=== PATIENT | female | born 1945 | race Caucasian/White ===

== ENCOUNTER 2018-10-30 11:53 | Emergency (ER) | payer MEDICARE ==
--- NOTE | 2018-10-30 12:12 | EDM.PDOC ---
ED HPI GENERAL MEDICAL PROBLEM - General Chief Complaint: Neuro Symptoms/Deficits Stated Complaint: PROBLEM WITH BALANCE,MIGHT'VE HAD A STROKE Time Seen by Provider: 10/30/18 12:01 Source of Information: Reports: Patient, Family History Limitations: Reports: No Limitations - History of Present Illness INITIAL COMMENTS - FREE TEXT/NARRATIVE: 73-year-old female presents to the ED in a complement of her son. He reports that about 48 hours ago he noted that she wasn't walking normally and that her speech was somewhat dysarthric. Took a while for him to build to talk her into coming to the hospital suspecting she male well suffered a stroke. She was still in denial that she had suffered a stroke even upon reaching the ED. Her speech is mildly dysarthric. She denies headache nausea vomiting. She denies any visual acuity changes. She states she still able to walk to the bathroom. She does not use Gait aid at home. Denies any palpitations or irregular heartbeats. States she does have chronic high blood pressure. She's been away on a cruise for 3 weeks and just got back home and is currently here visiting from [place] with her children. She states she hasn't been checking her blood pressure for the last month. Onset: Sudden Onset Date: 10/28/18 (Seem to have symptoms upon awakening 2 days ago.) Duration: Day(s):, Constant Location: Reports: Face (With dysarthric speech), Upper Extremity, Left ( Apparently was noted to be dropping things with her left upper extremity 24 hours ago.), Lower Extremity, Left, Other (Troubles walking. Dysarthric speech) Quality: Reports: Other (Dysarthria and trouble walking noted by son and daughter.) Severity: Mild Improves with: Reports: None Worsens with: Reports: None Context: Reports: Other (Seemed to awake with symptoms of dysarthria and weakness on the left arm and leg making it difficult for her to walk normally 2 days ago.). Denies: Activity, Exercise, Lifting, Sick Contact, Trauma Associated Symptoms: Reports: Malaise (has been little more tired as of late but blames this on her trip up here from [place].). Denies: Confusion, Chest Pain, Cough, cough w sputum, Diaphoresis, Fever/Chills, Headaches, Loss of Appetite, Nausea/Vomiting, Rash, Seizure, Shortness of Breath, Syncope Treatments TRANSPORTATION AID: Reports: Other (see below) (No recent changes to any of her medications.) - Related Data Allergies Allergy/AdvReac Type Severity Reaction Status Date / Time No Known Allergies Allergy Verified 10/30/18 12:08 Home Meds: Home Meds Aspirin [Halfprin] 162 mg PO DAILY #90 tab.ec 10/30/18 [Rx] Clopidogrel Bisulfate [Plavix] 75 mg PO DAILY #20 tablet 10/30/18 [Rx] Past Medical History HEENT History: Reports: Other (See Below) (Wears eyeglasses.) Cardiovascular History: Reports: High Cholesterol, Hypertension Musculoskeletal History: Reports: Osteoarthritis, Osteoporosis Social & Family History - Tobacco Use Smoking Status *Q: Never Smoker Second Hand Smoke Exposure: No - Caffeine Use Caffeine Use: Reports: Coffee, Tea - Recreational Drug Use Recreational Drug Use: No - Living Situation & Occupation Living situation: Reports: Occupation: Retired (Just came home from a three-week cruise. She currently resides in [place] and is currently up here in [place] visiting her son and daughter.) ED ROS GENERAL - Review of Systems Review Of Systems: See Below Constitutional: Reports: Malaise, Fatigue. Denies: Fever, Chills, Decreased Appetite, Weight Loss HEENT: Reports: Glasses. Denies: Vision Change Respiratory: Reports: No Symptoms Cardiovascular: Reports: No Symptoms, Blood Pressure Problem (Chronic hypertension problem and she has been checking her blood pressures for the last month.). Denies: Palpitations Endocrine: Reports: Fatigue GI/Abdominal: Reports: Constipation : Reports: Frequency (Occasional positive constipation), Incontinence Musculoskeletal: Reports: Joint Pain (Both urge and stress components) Skin: Reports: No Symptoms ( release hips and lower back. Occasionally neck and shoulders.) Neurological: Reports: Trouble Speaking (Dysarthric speech appreciated on my assessment), Weakness (Weakness left arm and leg noted by her son 2 days ago patient seems to be in denial about this.), Gait Disturbance ( and son says this is a definite change from her normal). Denies: Confusion, Dizziness, Headache, Numbness, Paresthesia, Syncope, Tingling, Tremors Psychiatric: Reports: No Symptoms Hematologic/Lymphatic: Reports: No Symptoms (son appreciates a change in her gait as well with the last 48 hours. ) Immunologic: Reports: No Symptoms ED EXAM, NEURO - Physical Exam Exam: See Below Exam Limited By: No Limitations General Appearance: Alert, WD/WN, No Apparent Distress, Anxious, Mild Distress, Other (Patient is somewhat in denial about having any problems and she states she feels fine. Her vital signs reveal she is afebrile with a pulse of 92 and sinus respiratory rate is 18 with sats of 98% on room air. Her pressure is somewhat labile as high as 190 systolic but all of the diastolics are below 90.) Eye Exam: Bilateral Eye: Normal Inspection, PERRL (No gaze palsy.) Ears: Normal TMs Throat/Mouth: Normal Inspection, Normal Lips, Normal Oropharynx, Other (Uvula is in the midline and she had no trouble swallowing) Head Exam: Other (She does have mild left-sided facial droop.). No: Atraumatic , Normocephalic, Facial Swelling, Facial Tenderness Neck: Normal Inspection, Carotid Bruit, Limited Range of Motion, Tender Lateral. No: Lymphadenopathy (L), Lymphadenopathy (R) Respiratory/Chest: No Respiratory Distress, Lungs Clear, Normal Breath Sounds, No Accessory Muscle Use, Chest Non-Tender Cardiovascular: Normal Peripheral Pulses, Regular Rate, Rhythm, No Edema, No Gallop, Systolic Murmur ( is a grade 1 pansystolic murmur best heard at the left lower sternal border compatible with aortic stenosis.) GI/Abdominal: Normal Bowel Sounds, Soft, Non-Tender, No Organomegaly Neurological: Alert, Normal Mood/Affect, Normal Dorsiflexion, No Motor/Sensory Deficits (Very difficult to identify a difference on examination between the right and left hand grasps as well as biceps and flexor strength and similarly in her lower extremities at the hip flexors as well as the hamstrings.), Oriented x 3, Abnormal Gait (She walks with her feet relatively close together to maintain her balance.), Abnormal Finger to Nose (She has slight ataxia on left sided finger to nose assessment and similarly on left [id number] assessment.), Babinski (Upgoing on the left.), Difficulty Walking, Other (Normal ). No: CN II-XII Intact (She has left hemifacial weakness and droop. Mouth post the right side when she tries to smile or show her teeth.), Normal Plantar Flexion, Normal Gait, Normal Reflexes DTR: 0: Achilles (R), Achilles (L), 1+: Bicep (R), Bicep (L), Patella (R), Patella (L) Back Exam: Normal Inspection, Full Range of Motion Extremities: Other Psychiatric: Normal Affect (Evidence of osteophytic changes in both knees.), Normal Mood Skin Exam: Warm, Dry, Intact, Normal Color, No Rash EKG INTERPRETATION EKG Date: 10/30/18 Time: 12:23 Rhythm: NSR Rate (Beats/Min): 77 [place]: LAD-Left [place] Deviation (-44) P-Wave: Present (With first-degree AV block) QRS: Other (Near Q waves in II, III, and F aVF suggesting old inferior wall myocardial infarction as well. Is evidence of left ventricular hypertrophy pattern with strain.) ST-T: Depressed (Mild ST segment depression in V5 V6 compatible with left ventricular hypertrophy with strain pattern.) QT: Prolonged (Mildly prolonged) EKG Interpretation Comments: Abnormal ECG Course - Vital Signs Last Recorded V/S: Last Vital Signs Temp 36.7 C 10/30/18 12:01 Pulse 92 10/30/18 12:01 Resp 98 H 10/30/18 12:01 BP 172/72 H 10/30/18 14:57 Pulse Ox 98 10/30/18 12:01 - Orders/Labs/Meds Orders: Active Orders 24 hr Category Date Time Status EKG Documentation Completion [RC] STAT Care 10/30/18 12:12 Active Labs: Laboratory Tests 10/30/18 10/30/18 10/30/18 Range/Units 12:20 12:20 12:20 WBC 6.93 (3.98-10.04) K/mm3 RBC 4.61 (3.98-5.22) M/mm3 Hgb 14.7 (11.2-15.7) gm/L Hct 42.9 (34.1-44.9) % MCV 93.1 (79.4-94.8) fl MCH 31.9 (25.6-32.2) pg MCHC 34.3 (32.2-35.5) g/dl RDW Std Deviation 41.9 (36.4-46.3) fL Plt Count 239 (182-369) K/mm3 MPV 9.4 (9.4-12.3) fl Neutrophils % (Manual) 71 H (40-60) % Band Neutrophils % 0 (0-10) % Lymphocytes % (Manual) 21 (20-40) % Atypical Lymphs % 0 % Monocytes % (Manual) 5 (2-10) % Eosinophils % (Manual) 2 (0.7-5.8) % Basophils % (Manual) 1 (0.1-1.2) Platelet Estimate Adequate RBC Morph Comment Normal PT 10.3 (9.5-12.1) SECONDS INR 0.94 APTT 27 (24-31) SECONDS D-Dimer, Quantitative (0.19-0.50) mg/L Sodium 139 (136-145) mEq/L Potassium 3.5 (3.5-5.1) mEq/L Chloride 103 (98-107) mEq/L Carbon Dioxide 25 (21-32) mEq/L Anion Gap 14.5 (5-15) BUN 14 (7-18) mg/dL Creatinine 0.7 (0.55-1.02) mg/dL Est Cr Clr Drug Dosing TNP Estimated GFR (MDRD) > 60 (>60) mL/min BUN/Creatinine Ratio 20.0 H (14-18) Glucose 113 (83-115) mg/dL POC Glucose (83-110) mg/dL Calcium 10.1 (8.5-10.1) mg/dL Magnesium 2.0 (1.8-2.4) mg/dl Total Bilirubin 0.5 (0.2-1.0) mg/dL AST 42 H (15-37) U/L ALT 82 H (14-59) U/L Alkaline Phosphatase 81 (46-116) U/L Troponin I < 0.017 (0.00-0.056) ng/mL C-Reactive Protein 0.4 (<1.0) mg/dL NT-Pro-B Natriuret Pep (0-125) pg/mL Total Protein 7.9 (6.4-8.2) g/dl Albumin 3.9 (3.4-5.0) g/dl Globulin 4.0 gm/dL Albumin/Globulin Ratio 1.0 (1-2) 10/30/18 10/30/18 10/30/18 Range/Units 12:20 12:20 12:21 WBC (3.98-10.04) K/mm3 RBC (3.98-5.22) M/mm3 Hgb (11.2-15.7) gm/L Hct (34.1-44.9) % MCV (79.4-94.8) fl MCH (25.6-32.2) pg MCHC (32.2-35.5) g/dl RDW Std Deviation (36.4-46.3) fL Plt Count (182-369) K/mm3 MPV (9.4-12.3) fl Neutrophils % (Manual) (40-60) % Band Neutrophils % (0-10) % Lymphocytes % (Manual) (20-40) % Atypical Lymphs % % Monocytes % (Manual) (2-10) % Eosinophils % (Manual) (0.7-5.8) % Basophils % (Manual) (0.1-1.2) Platelet Estimate RBC Morph Comment PT (9.5-12.1) SECONDS INR APTT (24-31) SECONDS D-Dimer, Quantitative 0.52 H (0.19-0.50) mg/L Sodium (136-145) mEq/L Potassium (3.5-5.1) mEq/L Chloride (98-107) mEq/L Carbon Dioxide (21-32) mEq/L Anion Gap (5-15) BUN (7-18) mg/dL Creatinine (0.55-1.02) mg/dL Est Cr Clr Drug Dosing Estimated GFR (MDRD) (>60) mL/min BUN/Creatinine Ratio (14-18) Glucose (83-115) mg/dL POC Glucose 127 H (83-110) mg/dL Calcium (8.5-10.1) mg/dL Magnesium (1.8-2.4) mg/dl Total Bilirubin (0.2-1.0) mg/dL AST (15-37) U/L ALT (14-59) U/L Alkaline Phosphatase (46-116) U/L Troponin I (0.00-0.056) ng/mL C-Reactive Protein (<1.0) mg/dL NT-Pro-B Natriuret Pep 55 (0-125) pg/mL Total Protein (6.4-8.2) g/dl Albumin (3.4-5.0) g/dl Globulin gm/dL Albumin/Globulin Ratio (1-2) Meds: Medications Discontinued Medications Generic Name Dose Route Start Last Admin Trade Name Ora PRN Reason Stop Dose Admin Amlodipine Besylate 5 mg 10/30/18 14:49 10/30/18 14:57 Norvasc PO 10/30/18 14:50 5 mg ONETIME ONE Administration Aspirin 162 mg 10/30/18 14:42 10/30/18 14:58 Aspirin PO 10/30/18 14:43 162 mg ONETIME ONE Administration Clopidogrel Bisulfate 75 mg 10/30/18 14:41 10/30/18 14:59 Plavix PO 10/30/18 14:42 75 mg ONETIME ONE Administration Sodium Chloride 1,000 mls @ 125 mls/hr 10/30/18 12:15 10/30/18 12:24 Normal Saline IV 125 mls/hr ASDIRECTED PERLA Administration - Radiology Interpretation Free Text/Narrative:: CT head has been completed. It reveals ventricles along the basal cisterns and sulci over the convexities are within normal limits for the patient's age. Diminished density is noted within the periventricular and subcortical white matter which is most likely due to small vessel ischemic demyelination changes. No other abnormal parenchymal densities are seen. No evidence of intracranial hemorrhage. No midline shift or mass effect identified. Bone windows show no calvarial abnormalities. Chest x-ray done portably reveals heart is slightly enlarged was a tortuous thoracic aorta. Lungs are otherwise clear. Labs are back revealing a normal white count at 6.93. Differential is 71% neutrophils and no band cells. Hemoglobin is 14.7 with hematocrit of 42.9. Platelet count is 239,000. PT is 10.3 with an INR of 0.94. PTT is 27 d-dimer is 0.5 to minimally elevated especially for her age. Sodium 139 potassium 3.5. Chloride 103 with a bicarbonate 25. Anion gap is 14.5. BUN is 14 with a creatinine of 0.7. BUN/creatinine ratio is 20. Glucose is 113. Bedside glucose was 127. Calcium was 10.1. Magnesium was 2.0. Bilirubin is 0.5 with a slightly elevated AST at 42 and ALT at 82. Alkaline phosphatase is normal at 81. Troponin I is less than 0.017. C-reactive protein is 0.4 BNP is 55. Total protein 7.9 with an albumin fraction 3.9. - Re-Assessments/Exams Free Text/Narrative Re-Assessment/Exam: 10/30/18 15:30: I repeated her neurological examination and again was unable to identify a definitive change in motor power and tone between the right and left upper and lower extremities. He remains positive on the left side however. She still has mildly dysarthric speech. She can walk fairly well although she is a little off balance and lists slightly to the left side. I'm therefore going to have radiology call her in the morning with a plan to have MRI of her brain completed to confirm whether or not she has had definitive stroke. He needed at this time will be Plavix 75 mg once daily for 3 weeks with aspirin 162 mg once daily as well. Aspirin to be taken at in the morning and Plavix to be taken at bedtime. Ideally she will be traveling back to [place] within the next few days and hopefully have further investigations completed such as ultrasound of her carotid arteries and perhaps MRA. He also needs an echocardiogram. She will be staying with her son brittany and daughter tomorrow. We will get her a walker for through the department today to help minimize falls due to her abnormal gait at this time. 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 This includes dysarthria which means speech is coming out somewhat difficult to understand like Wednesday's someone is under the influence of alcohol. Family members have appreciated left arm weakness and change in her ability to walk or her gait. Examination definitely reveals left bonnie-facial weakness. Very minimal weakness appreciated in the left arm and leg. Definite change in gait weren't is more waddling type gait to maintain balance. CT of the brain done here reveals degenerative changes. Ventricles along with the basal cisterns and sulci over the convex user within normal limits for the patient's age. There is diffuse periventricular and subcortical white matter changes which are likely due to small vessel ischemic demyelination changes. No other parenchymal densities are seen in the brain. Particular no evidence of intracranial hemorrhage or midline shift or mass effect. Therefore the stroke is not showing up on today's CT scan. Therefore treatment after labs were completed is to be Plavix 75 mg once daily for 3 weeks in addition to aspirin 162 mg once daily. I would suggest taking them one at bedtime and one first thing in the morning and doesn't matter which. I will have our x-ray department call tomorrow morning to arrange an MRI of your brain which will confirm a stroke is occurred. Since you are from [place] he will be heading back to home within the next day or 2. He will need further investigations by way of ultrasound of your carotid arteries in your neck and an echocardiogram of your heart and perhaps further imaging of the brain blood vessels to see if there is any thing that could be done to try and prevent a future stroke from occurring. After 3 weeks use of Plavix will usually switch back to a baby aspirin 81 mg once daily. He will not require any further medication until tomorrow. - My Orders Last 24 Hours: My Active Orders 10/30/18 12:12 EKG Documentation Completion [RC] STAT - Assessment/Plan Last 24 Hours: My Active Orders 10/30/18 12:12 EKG Documentation Completion [RC] STAT
[2018-10-30] MEDS ORDERED: Sodium Chloride 0.9% 1,000 ML IV SCH (12:15)
--- NOTE | 2018-10-30 12:32 | CT ---
Head CT Technique: Multiple axial sections of the brain were obtained. Intravenous contrast was not utilized. Comparison: No previous intracranial imaging. Findings: Ventricles along with basal cisterns and sulci over convexities are within normal limits for the patient's age. Diminished density is noted within the periventricular and subcortical white matter which is most likely due to small vessel ischemic demyelination change. No other abnormal parenchymal densities are seen. No evidence of intracranial hemorrhage. No midline shift or mass effect is seen. Bone window settings were reviewed which shows no acute calvarial abnormality. Visualized sinuses show nothing acute. Impression: 1. Senescent change as noted above. Nothing acute is appreciated on noncontrast head CT exam. Diagnostic code #2
[2018-10-30] MEDS ORDERED: Clopidogrel 75 MG Tab PO ONE (14:41)
[2018-10-30] MEDS ORDERED: Aspirin 81 MG Tab.Chew PO ONE (14:42)
[2018-10-30] MEDS ORDERED: amLODIPine 5 MG Tab PO ONE (14:49)
--- NOTE | 2018-10-30 19:35 | CR ---
Chest: Portable view of the chest was obtained. Comparison: No prior chest x-ray. Heart is slightly enlarged. Tortuous thoracic aorta is seen. Lungs are clear. Bony structures are grossly intact. Impression: 1. Mild cardiomegaly. Nothing acute is appreciated on portable chest x-ray. Diagnostic code #2
== END 2018-10-30 15:45 | disposition home or self-care (01) ==
LOC: JD.ED 11:53
DX: I63.312 Cerebral infarction due to thrombosis of left middle cerebral artery (principal); I10 Essential (primary) hypertension; E78.00 Pure hypercholesterolemia, unspecified; Z79.82 Long term (current) use of aspirin; Z79.899 Other long term (current) drug therapy
CPT/HCPCS: 36415; 70450; 71045; 80053; 82962; 83735; 83880; 84484; 85007; 85027; 85379; 85610; 85730; 86140; 93005; 96360; 96361; 99285; A9270; J7040; 93010; 99284